=== PATIENT | female | born 1990 | race Caucasian/White ===

== ENCOUNTER 2023-09-20 21:24 | Emergency (ER) | payer OTHER ==
[2023-09-20 21:33] VITALS: BP 109/62; PULSE 71; RESP 18; TEMP 98.4; BMI 24.5
[2023-09-20 23:52] LABS: PH,URINE 6.5 (5.0-8.0); URINE APPEARANCE CLEAR; URINE BILIRUBIN NEGATIVE (NEGATIVE); URINE COLOR YELLOW; URINE GLUCOSE (UA) NEGATIVE (NEGATIVE); URINE KETONE NEGATIVE (NEGATIVE); URINE LEUK ESTERASE NEGATIVE (NEGATIVE); URINE NITRITE NEGATIVE (NEGATIVE); URINE PROTEIN NEGATIVE (NEGATIVE)
[2023-09-21 01:12] LABS: SYPHILIS W/ RPR CONF NON-REACTIVE (NONREACTIVE)
[2023-09-21 01:41] LABS: HIV INTERPRETATION NEGATIVE (NEGATIVE)
[2023-09-21] MEDS ORDERED: DOXYCYCLINE HYCLATE 100 MG CAPSULE PO ONE ×2 (01:49→01:51)
[2023-09-21] MEDS ORDERED: metroNIDAZOLE 250 MG TABLET PO ONE (01:49)
[2023-09-21] MEDS ORDERED: cefTRIAXone SODIUM 1 GM VIAL ONE (01:51)
[2023-09-21] MEDS ORDERED: metroNIDAZOLE 250 MG TABLET ONE (01:51)
[2023-09-21] MEDS ORDERED: LIDOCAINE HCL 1%, 10 MG/ML (20ML VIAL) ONE (01:52)
== END 2023-09-21 02:03 | disposition home or self-care (01) ==
LOC: JER 21:24
DX: R10.2 Pelvic and perineal pain (principal); N89.8 Other specified noninflammatory disorders of vagina; N73.9 Female pelvic inflammatory disease, unspecified; R30.0 Dysuria; N94.10 Unspecified dyspareunia
CPT/HCPCS: 36415; 81003; 84703; 86704; 86706; 86780; 87086; 87389; 87491; 87517; 87591; 99284-25

== ENCOUNTER 2025-06-12 23:29 | Emergency (ER) | payer OTHER ==
[2025-06-12 23:39] VITALS: BP 101/55; PULSE 60; RESP 18; TEMP 97.4; BMI 26.6
[2025-06-13] MEDS ORDERED: FAMOTIDINE 20 MG/50 ML IVPB 20 MG/50 ML MG IVPB ONE (00:42)
[2025-06-13] MEDS ORDERED: ONDANSETRON 4 MG/2 ML VIAL ONE (00:42)
[2025-06-13] MEDS ORDERED: ACETAMINOPHEN INJECTION 100 ML ONE (00:48)
[2025-06-13] MEDS: LACTATED RINGERS SOLUTION 1000 ML INFUS.BAG IV ONE (00:51)
[2025-06-13] MEDS: ACETAMINOPHEN 1000 MG/100 ML BAG IVPB ONE (00:51)
[2025-06-13] MEDS: FAMOTIDINE 20 MG/50 ML IVPB 20 MG/50 ML MG IVPB ONE (00:52)
[2025-06-13] MEDS: ONDANSETRON 4 MG/2 ML VIAL IVPUSH ONE (00:52)
[2025-06-13 01:00] LABS: ABSOLUTE IMMATURE GRANULOCYTES 0.02 x10^3/uL (0.0-0.031); BASOPHILS # 0.02 x10^3/uL (0.01-0.08); EOSINOPHIL % 3.2 % (0.7-5.8); EOSINOPHILS # 0.28 x10^3/uL (0.04-0.36); MCHC 33.9 g/dl (32.2-35.5); MEAN CELL VOLUME 86.9 fl (79.4-94.8); MEAN PLT VOLUME 10.1 fl (9.4-12.3); MONOCYTE # 0.30 x10^3/uL (0.24-0.86); MONOCYTE % 3.4 % (4.7-12.5); RDW 11.7 % (12.1-16.8)
[2025-06-13 01:03] LABS: URINE APPEARANCE CLEAR; URINE BILIRUBIN NEGATIVE (NEGATIVE); URINE COLOR YELLOW; URINE GLUCOSE (UA) NEGATIVE (NEGATIVE); URINE KETONE NEGATIVE (NEGATIVE); URINE LEUK ESTERASE NEGATIVE (NEGATIVE); URINE NITRITE NEGATIVE (NEGATIVE); URINE PROTEIN NEGATIVE (NEGATIVE); URINE UROBILINOGEN 0.2 mg/dL (0.2-1.0)
[2025-06-13 01:25] LABS: GLUCOSE,RANDOM 78.0 mg/dL (74-106); TOT PROT 8.8 g/dl (6.4-8.2)
[2025-06-13 01:26] LABS: CO2 19.0 mmol/L (21-32)
[2025-06-13 01:27] LABS: ALK PHOS 59.0 U/L (40-150)
[2025-06-13 01:30] LABS: CREATININE 0.59 mg/dL (0.55-1.3); SGOT/AST 31.0 U/L (5-34); SGPT/ALT 32.0 U/L (0-55)
[2025-06-13] MEDS ORDERED: KETOROLAC TROMETHAMINE 15 MG/ML VIAL ONE (01:44)
[2025-06-13] MEDS: KETOROLAC TROMETHAMINE 15 MG/ML VIAL IVPUSH ONE (01:44)
== END 2025-06-13 02:48 | disposition home or self-care (01) ==
LOC: JER 23:29
PROC: 3E033GC Introduction of Other Therapeutic Substance into Peripheral Vein, Percutaneous Approach (ICD-10-PCS; principal; 2025-06-13)
PROC: 3E033NZ Introduction of Analgesics, Hypnotics, Sedatives into Peripheral Vein, Percutaneous Approach (ICD-10-PCS; 2025-06-13)
PROC: 3E0333Z Introduction of Anti-inflammatory into Peripheral Vein, Percutaneous Approach (ICD-10-PCS; 2025-06-13)
PROC: 3E033GC Introduction of Other Therapeutic Substance into Peripheral Vein, Percutaneous Approach (ICD-10-PCS; 2025-06-13)
DX: R11.2 Nausea with vomiting, unspecified (principal); R19.7 Diarrhea, unspecified; R10.13 Epigastric pain; R68.83 Chills (without fever); T78.1XXA Other adverse food reactions, not elsewhere classified, initial encounter
CPT/HCPCS: 36415; 80053; 81003; 83605; 83690; 84703; 85025; 87086; 99284-25